=== PATIENT | female | born 1955 | race Caucasian/White ===

== ENCOUNTER 2018-10-21 08:13 | Outpatient (CLI) | payer BC ==
--- NOTE | 2018-10-21 10:35 | RAD ---
CERVICAL SPINE 4 VIEWS:: Date: 10/21/18 HISTORY: M[age], neck pain for many years. FINDINGS: AP, lateral, and both oblique views of the cervical spine performed. No AP open-mouth study. C1 and C 2 are poorly evaluated on this study, particularly the AP projection being obscured. Surgical clips o verlie the cervical spine anteriorly. Multilevel disc osteophytosis. No prevertebral soft tissue swel ling. Mild narrowing of the right C3-C4 and C4-C5 foramen, as well as the left C4-C5 foramen. IMPRESSION: Cervical spondylosis. POS: C
== END 2018-10-21 08:14 | disposition home or self-care (01) ==
LOC: SCSRAD 08:13
PROVIDERS: ATTEND Chiropractor
DX: M54.2 Cervicalgia (principal); M79.601 Pain in right arm; M47.812 Spondylosis without myelopathy or radiculopathy, cervical region
CPT/HCPCS: 72050

== ENCOUNTER 2019-01-01 06:55 | Outpatient (CLI) | payer BC ==
--- NOTE | 2019-01-01 08:17 | ULT ---
ULTRASOUND ABDOMEN: HISTORY: Epigastric pain. FINDINGS: The liver demonstrates increased echogenicity consistent with fatty infiltration with focal sparing a djacent to the gallbladder fossa. No focal mass or intrahepatic ductal dilatation is seen. Shadowin g echogenic mobile foci in the gallbladder are consistent with cholelithiasis. No gallbladder wall t hickening or pericholecystic fluid is seen. The kidneys, pancreas, spleen, and visualized portions o f the aorta and IVC appear normal. The common duct measures 6 mm in diameter. No free fluid is seen . IMPRESSION: 1. Fatty liver. 2. Cholelithiasis. POS: OFF
[2019-01-01 08:25] LABS: ALT (SGPT) 35 U/L (8-55); AST (SGOT) 28 U/L (5-34); Albumin 4.6 g/dL (3.4-4.8); Alkaline Phosphatase 87 U/L (40-110); Anion Gap 10 mmol/L (10-20); BUN (Urea Nitrogen) 17 mg/dL (9.8-20.1); Bilirubin, Total 0.6 mg/dL (0.2-1.2); Calc. Creatinine Clearance 0 mL/min (70-130); Calcium 9.8 mg/dL (7.8-10.44); Carbon Dioxide 25 mmol/L (23-31); Chloride 109 mmol/L (98-107); Estimated GFR-MDRD 70; Globulin 2.3 g/dL (2.4-3.5); Glucose 96 mg/dL (80-115); Lipase 28 U/L (8-78); Potassium 4.8 mmol/L (3.5-5.1); Protein, Total 6.9 g/dL (6.0-8.3); Sodium 139 mmol/L (136-145)
[2019-01-01 12:50] LABS: Ref Lab Test Ordered H PYLORI BREATH; Reference Lab Name LABCORP
[2019-01-04 18:10] LABS: H. pylori IgA ABS 15.3 units (0.0-8.9); H. pylori IgM ABS Less than 9.0 units (0.0-8.9)
== END 2019-01-01 06:56 | disposition home or self-care (01) ==
LOC: ULT 06:55
PROVIDERS: ATTEND Family Medicine
DX: R10.13 Epigastric pain (principal); K80.20 Calculus of gallbladder without cholecystitis without obstruction; K76.0 Fatty (change of) liver, not elsewhere classified
CPT/HCPCS: 36415; 76700; 80053; 82150; 83690

== ENCOUNTER 2019-02-08 05:45 | Day surgery (SDC) | payer BC ==
[2019-02-04 17:06] VITALS: BMI 26.6
[2019-02-08] MEDS ORDERED: Sodium Chloride 0.9% 0 ML ONE (06:07)
[2019-02-08] MEDS ORDERED: cefOXitin 2 GM VIAL ONE (06:07)
[2019-02-08] MEDS ORDERED: Sodium Chloride 0.9% 100 ML ONE (06:09)
[2019-02-08] MEDS ORDERED: Fentanyl 100 MCG/2 ML VIAL ONE ×2 (06:33→08:19)
[2019-02-08] MEDS ORDERED: Bupivacaine HCl 0.5%/Epinephrine 1:200,000/PF 30 ml Vial ONE (06:36)
[2019-02-08] MEDS ORDERED: SUGAMMADEX SODIUM 500 MG/5 ML VIAL ONE (08:09)
[2019-02-08] MEDS ORDERED: Meperidine HCl/PF 25 MG/ML VIAL ONE (09:16)
[2019-02-08] MEDS ORDERED: Dexamethasone 20 MG/5 ML VIAL ONE (10:01)
[2019-02-08] MEDS ORDERED: Ketorolac Tromethamine 30 MG/ML VIAL ONE (10:01)
[2019-02-08] MEDS ORDERED: diphenhydrAMINE 50 MG/ML VIAL ONE (10:01)
[2019-02-08] MEDS ORDERED: PROPOFOL 200 MG/20 ML VIAL ONE (10:01)
[2019-02-08] MEDS ORDERED: Rocuronium Bromide 10 MG/ML (10ML VIAL) ONE (10:01)
[2019-02-08] MEDS ORDERED: Glycopyrrolate 0.2 MG/ML 5 ML SYRINGE ONE (10:01)
[2019-02-08] MEDS ORDERED: Ondansetron PF 4 MG/2 ML Vial ONE (10:01)
--- NOTE | 2019-02-08 11:22 | OP ---
DATE OF PROCEDURE: 02/08/2019 PREOPERATIVE DIAGNOSIS: Symptomatic cholelithiasis. PROCEDURE PERFORMED: Laparoscopic cholecystectomy. INDICATIONS: A 64-year-old female, who has been having episodic right upper quadrant pain radiating to back. Ultrasound showed cholelithiasis. FINDINGS: She had adhesions to the gallbladder, very small caliber cystic duct. DESCRIPTION OF PROCEDURE: After informed consent was obtained, the patient was taken to the operating room and given general endotracheal anesthesia. She was placed in supine position. Abdomen was prepped and draped in usual fashion. Local anesthesia was infiltrated subcutaneously and deep. A subumbilical incision was performed. Subcu divided sharply. The fascia was grasped and two stay sutures of 0 Vicryl placed in each side of midline. Midline was incised. Digital palpation revealed no local adhesions. A blunt 12-mm trocar was inserted. Pneumoperitoneum was created to a pressure of 15 mmHg. A 0-degree laparoscope inserted under direct vision. Three 5-mm ports were placed subcostally. Gallbladder was grasped and advanced superiorly. Peritoneum lysed distally to expose the cystic duct and artery in critical view. The duct and artery were triply ligated with hemoclips and divided. The gallbladder was removed from its fossa utilizing electrocautery and removed from the abdomen through the umbilical port. Hemostasis was assured. Trocars and retractors were removed. The fascia closed with interrupted 0 Vicryl suture. The skin closed with interrupted 4-0 Rapide. Dermabond applied. The patient tolerated the procedure well, transferred to Recovery in good condition. Sponge and needle count verified correct x2. Job ID: [id number]
== END 2019-02-08 11:15 | disposition home or self-care (01) ==
LOC: SDC 05:45
PROVIDERS: ATTEND Surgery
PROC: 0FT44ZZ Resection of Gallbladder, Percutaneous Endoscopic Approach (ICD-10-PCS; principal; 2019-02-08)
DX: K80.10 Calculus of gallbladder with chronic cholecystitis without obstruction (principal); Z79.899 Other long term (current) drug therapy; Z87.891 Personal history of nicotine dependence
CPT/HCPCS: 88304; J0131; J0670; J0694; J1100; J1200; J1885; J2175; J2405; J2704; J3010; J3490

== ENCOUNTER 2019-04-08 08:21 | Outpatient (CLI) | payer BC ==
--- NOTE | 2019-04-08 09:05 | BD ---
EXAM: Bone densitometry using DEXA HISTORY: 64 yo female. Screening for postmenopausal osteoporosis FINDINGS: L1--bone mineral density 0.736 g/sq cm; T score -2.3 ; Z score -0.9 L2--bone mineral density 0.779 g/sq cm; T score -2.3 ; Z score -0.7 L3--bone mineral density 0.832 g/sq cm; T score -2.3 ; Z score -0.7 L4--bone mineral density 0.784 g/sq cm; T score -2.5 ; Z score -0.8 Total L1-L4--bone mineral density 0.785 g/sq cm; T score -2.4 ; Z score -0.8 Left femoral neck--bone mineral density0.635; T score -1.9 ; Z score -0.5 Total proximal left femur--bone mineral density 0.711; T score -1.9 ; Z score -0.8 The 10 year fracture risk for a major osteoporotic fracture is 9.8% and for a hip fracture is 1.2%. IMPRESSION: Osteopenia
--- NOTE | 2019-05-06 12:42 | MMO ---
Bilateral MAMMO Bilat Screen [facility]. CLINICAL HISTORY: Patient is 64 years old and is seen for screening. The patient has no family history of breast cancer. The patient has no personal history of cancer. VIEWS: The views performed were: bilateral craniocaudal with tomosynthesis and bilateral mediolateral oblique with tomosynthesis. FILMS COMPARED: The present examination has been compared to prior imaging studies performed at [facility] on 06/24/2013, 06/27/2014, 06/28/2014 and 12/26/2016. This study has been interpreted with the assistance of computer-aided detection. MAMMOGRAM FINDINGS: There are scattered fibroglandular densities. There are no suspicious masses, suspicious calcifications, or new areas of architectural distortion. IMPRESSION: THERE IS NO MAMMOGRAPHIC EVIDENCE OF MALIGNANCY. A ROUTINE FOLLOW-UP MAMMOGRAM IN 1 YEAR IS RECOMMENDED. THE RESULTS OF THIS EXAM WERE SENT TO THE PATIENT. ACR BI-RADS Category 1 - Negative MAMMOGRAPHY NOTE: 1. A negative mammogram report should not delay a biopsy if a dominant of clinically suspicious mass is present. 2. Approximately 10% to 15% of breast cancers are not detected by mammography. 3. Adenosis and dense breasts may obscure an underlying neoplasm. Reported by: MADI PAGE MD Electonically Signed: [id number]
== END 2019-04-08 08:22 | disposition home or self-care (01) ==
LOC: BICMAMMO 08:21
PROVIDERS: ATTEND Family Medicine
DX: Z12.31 Encounter for screening mammogram for malignant neoplasm of breast (principal); Z13.820 Encounter for screening for osteoporosis; M85.89 Other specified disorders of bone density and structure, multiple sites
CPT/HCPCS: 77063; 77067; 77080

== ENCOUNTER 2020-06-30 16:16 | Emergency (ER) | payer BC ==
[~2020-06-30 16:16] MED LIST: Iopamidol-370 76% 500 ML 1 ML ONE
[2020-06-30 18:11] LABS: #Basophils 0.1 thou/uL (0.0-0.2); #Eosinphils 0.1 thou/uL (0.0-0.7); #Lymphocytes 1.5 thou/uL (1.20-3.40); #Monocytes 0.5 thou/uL (0.11-0.59); #Neutrophils 3.9 thou/uL (1.40-6.50); %Eosinophils 2.3 % (0.0-10.0); %Lymphocytes 24.5 % (21.0-51.0); %Monocytes 7.5 % (0.0-10.0); %Neutrophils 64.7 % (42.0-75.0); Hemoglobin 13.8 g/dL (12.0-16.0); Mean Corpuscular Hemoglobin 34.1 pg (27.0-31.0); Mean Platelet Volume 6.7 fL (7.4-10.4); Platelet Count 242 thou/uL (130-400); RBC Distribution Width 11.2 % (11.5-14.5); Red Blood Cell (RBC) Count 4.03 mill/uL (4.20-5.40); White Blood Cell (WBC) Count 6.1 thou/uL (4.8-10.8)
[2020-06-30 18:33] LABS: ALT (SGPT) 26 U/L (8-55); AST (SGOT) 22 U/L (5-34); Albumin 4.2 g/dL (3.4-4.8); Alkaline Phosphatase 69 U/L (40-110); Anion Gap 12 mmol/L (10-20); BUN (Urea Nitrogen) 13 mg/dL (9.8-20.1); Bilirubin, Total 0.4 mg/dL (0.2-1.2); Calc. Creatinine Clearance 0 mL/min (70-130); Calcium 9.1 mg/dL (7.8-10.44); Carbon Dioxide 24 mmol/L (23-31); Chloride 109 mmol/L (98-107); Glucose 88 mg/dL (80-115); Lipase 22 U/L (8-78); Potassium 4.3 mmol/L (3.5-5.1); Protein, Total 6.2 g/dL (5.8-8.1); Sodium 141 mmol/L (136-145)
[2020-06-30 18:47] LABS: Bacteria/HPF None Seen HPF (None Seen); Bilirubin Negative (Negative); Blood, Urine Trace (Negative); Clarity Clear (Clear); Glucose, Urine (Dipstick) Normal (Negative); Ketone, Urine Negative (Negative); Leukocyte Negative Leu/uL (Negative); Nitrite Negative (Negative); Protein, Urine (Dipstick) Negative (Neg-Trace); RBC/HPF 0-3 HPF (0-3); Specific Gravity, Urine 1.011 (1.002-1.036); Squamous Epithelial 0-3 HPF (0-3); Urobilinogen Normal mg/dL (Less than 2); WBC/HPF 0-3 HPF (0-3); pH, Urine 7.5 (5.0-9.0)
[2020-06-30] MEDS ORDERED: Ondansetron PF 4 MG/2 ML Vial ONE (19:23)
[2020-06-30] MEDS ORDERED: Acetaminophen 500 MG TAB ONE (20:27)
[2020-06-30] MEDS ORDERED: Acetaminophen 325 MG TAB ONE (20:30)
== END 2020-06-30 20:43 | disposition home or self-care (01) ==
LOC: ERS 16:16
DX: K29.70 Gastritis, unspecified, without bleeding (principal); K76.0 Fatty (change of) liver, not elsewhere classified; E03.9 Hypothyroidism, unspecified; Z79.899 Other long term (current) drug therapy
CPT/HCPCS: 36415; 71045; 74177; 80053; 81003; 81015; 83690; 84484; 85025; 93005; 96372; 96374; J0500; J2405; Q9967